=== PATIENT | female | born 1980 | race Caucasian/White ===

== ENCOUNTER 2018-01-31 20:53 | Emergency (ER) | payer MEDICAID, SELFPAY ==
[2018-01-31 20:55] VITALS: BP 161/121; PULSE 94; RESP 16; TEMP 36.7; O2SAT 98; BMI 43.2
--- NOTE | 2018-01-31 21:16 | US_ITS ---
STUDY: VENOUS DOPPLER ULTRASOUND - RIGHT LOWER EXTREMITY REASON FOR EXAM: Female, 37 years old. Right leg pain TECHNIQUE: Ultrasound evaluation of the deep vein system to include garcia-scale imaging and compression was performed. Garcia-scale imaging and Doppler sonographic evaluation, including duplex spectral analysis and qualitative color flow sonography, was performed. COMPARISON: None. FINDINGS: Common Femoral Vein: Normal compression, spontaneity and augmentation. Normal color Doppler. Common Femoral Vein/Greater Saphenous Junction: Normal compression, spontaneity and augmentation. Normal color Doppler. Deep Femoral Vein: Normal compression, spontaneity and augmentation. Normal color Doppler. Femoral Proximal: Normal compression, spontaneity and augmentation. Normal color Doppler. Femoral Middle: Normal compression, spontaneity and augmentation. Normal color Doppler. Femoral Distal: Normal compression, spontaneity and augmentation. Normal color Doppler. Popliteal Vein: Normal compression, spontaneity and augmentation. Normal color Doppler. Posterior Tibial Vein: Normal compression, spontaneity and augmentation. Normal color Doppler. Peroneal Vein: Normal compression, spontaneity and augmentation. Normal color Doppler. US/Venous Duplex Imag/Limited/Uni IMPRESSION: Normal venous Doppler ultrasound of the lower extremity. Electronically Signed: Ilia Biggs, at 22:29 EDT Tel , Service support ,
[2018-01-31] MEDS: proCHLORPERazine 10 MG/2 ML Vial IV (21:43)
[2018-01-31] MEDS: DiphenhydrAMINE 50 MG/ML Syringe IV (21:43)
[2018-01-31] MEDS: 0.9% Normal Saline 1,000 ML 999 ML IV (21:43)
[2018-01-31] MEDS: Ketorolac 30 MG/ML Syringe IV (21:43)
[2018-01-31 21:46] VITALS: BP 131/96; PULSE 79; RESP 16
--- NOTE | 2018-01-31 22:02 | ED.VISSUMM ---
- ER Visit Summary Date of Service: 01/31/18 Chief Complaint: Leg pain, migraine History of Present Illness: The patient is a 37 F presents to the emergency department with ecchymosis on the posterior right calf. Patient does not recall any injury. She states that she noticed a small amount of bruising on the calf. Throughout the day, the bruising is worsened. She has begun to have pain when she moves her foot. She does not take anticoagulants. She states because of the pain, she has had to change the way that she walks. She has begun to have a headache. She has a history of migraines and states that it feels like the start of one. She has been nauseated without vomiting. She has no history of hypercoagulopathy or prior blood clot. Physical Examination: Vital signs reviewed General: Well-nourished, well-developed Head: Normocephalic, atraumatic Eyes: Pupils equal and reactive, extraocular muscles intact Neck, supple, no lymphadenopathy Heart: Regular rate and rhythm Respiratory: No distress, clear bilaterally Abdomen: Soft, nontender, nondistended, no peritoneal signs Back: Nontender Extremities: Patient has a 5 cm area of ecchymosis on the medial posterior right calf. There is no cords. There is no cellulitis or streaking. Pulses are normal. Calf is soft. No compartment tenderness or fullness. Skin: Normal color no rash Neuro: Alert and oriented, no focal or lateralizing deficits Test Results: [] Emergency Department Course and Treatment: The patient does have a hematoma on her posterior calf. There is no compartment syndrome. Her pulses are normal. She is now beginning to get a migraine from her leg pain. Patient was treated with migraine abortive medications with resolution of her symptoms. I did obtain an ultrasound of the leg. There is no evidence of clot. I do feel that she may have torn a superficial vein now has a hematoma. She will continue anti-inflammatories. At this time, I do feel that the patient is safe for discharge. Treatment Plan: [] Disposition: Discharge Impression: 1. Hematoma right posterior calf 2. Migraine This note was generated with [employer] software. It may contain incorrect words, spelling, and punctuation that were not noted in review of the chart prior to signing ED Disposition - Plan for ED Patient: Chief Complaint: Dizziness Instructions: ED Hematoma, ED Headache Migraine Prescriptions: Ondansetron [Zofran Odt] 4 mg PO Q8H PRN PRN #10 tab PRN Reason: Nausea Naproxen [Naprosyn] 500 mg PO BID PRN #20 tab Referrals: [facility] Doctor,Out of [Primary Care Provider] -
[2018-01-31 22:33] VITALS: BP 146/91; PULSE 76; RESP 16
== END 2018-01-31 22:34 | disposition home or self-care (01) ==
LOC: ED 22:19
PROVIDERS: Emergency Provider Emergency Medicine
DX: S80.11XA Contusion of right lower leg, initial encounter (principal); G43.909 Migraine, unspecified, not intractable, without status migrainosus; X58.XXXA Exposure to other specified factors, initial encounter; Y93.9 Activity, unspecified; Y92.9 Unspecified place or not applicable; Y99.9 Unspecified external cause status
CPT/HCPCS: 93971; 96361; 96374; 96375; 99284; J7030

== ENCOUNTER 2018-02-02 11:57 | Emergency (ER) | payer MEDICAID, SELFPAY ==
[2018-02-02 11:58] VITALS: BP 162/116; PULSE 101; RESP 16; TEMP 36.9; O2SAT 98; BMI 43.1
--- NOTE | 2018-02-02 12:21 | CT_ITS ---
STUDY: CT ABDOMEN AND PELVIS WITHOUT CONTRAST REASON FOR EXAM: Female, 37 years old. Left flank pain. History of renal stones. RADIATION DOSAGE (If Supplied By Facility): CTDIvol = ( 24.47 ) mGy, DLP = ( 1375.78 ) mGycm TECHNIQUE: Transaxial images were obtained from the dome of the diaphragm to the symphysis pubis without oral contrast, and without intravenous contrast. Sagittal and coronal images were reconstructed. Individualized dose optimization techniques were used for this CT. COMPARISON: None. FINDINGS: The visualized lung bases are unremarkable. The visualized portions of the heart are within normal limits. Normal liver. There are surgical clips in the gallbladder fossa consistent with a prior cholecystectomy. There is mild splenomegaly. Normal pancreas. Normal bilateral adrenal glands. Normal right kidney. Normal left kidney. Normal visualized stomach. There are nonspecific fluid-filled small bowel loops. There is fecal retention. There is thickening of the thumb transverse and descending colon which could be due to underdistention however colitis cannot be excluded. The appendix is suboptimally visualized but appears to be unremarkable. There is mild diverticulosis of the sigmoid colon but there is no evidence of acute diverticulitis. Normal abdominal aorta. Normal inferior vena cava. Normal retroperitoneum. The bladder is not well-distended. There is a small left pelvic calcification likely due to phleboliths. There is a very small umbilical hernia containing fat. The patient is status post fusion of L4, L5 and S1 with bilateral pedicle screws. CT/Abdomen/Pelvis without Cont IMPRESSION: No evidence of urinary tract stones or hydronephrosis. Left pelvic calcification probably due to phleboliths. Nonspecific fluid-filled small bowel loops and mild thickening of the descending and transverse colon which could be due to underdistention. Enterocolitis cannot be excluded. Electronically Signed: Hubert Alexander MD at 14:26 EDT Tel , Service support ,
--- NOTE | 2018-02-02 12:23 | ED.DCSUM_ITS ---
- ER Visit Summary Date of Service: 02/02/18 Chief Complaint: Left flank pain History of Present Illness: The patient is a 37 F with a history of kidney stones presenting with fairly sudden onset left flank pain radiating anteriorly last night, similar to prior stone Physical Examination: She is not in distress. Neck is supple. Heart tones are regular and without murmur. She does have mild left flank percussion tenderness but overlying skin looks normal. No abdominal tenderness Test Results: Urinalysis does reveal leukocytes, nitrites, and bacteria. She does have UTI symptoms. CT abdomen/pelvis negative for ureteral stone but does reveal possible enterocolitis Emergency Department Course and Treatment: She has an obvious UTI but no evidence of stone. I will place her on antibiotics and culture her urine. Her pain is markedly improved on reexamination and she is not vomiting. She has had a recent diarrheal type illness so her CT findings are not surprising. She has no fever or evidence of an acute surgical abdomen. I will treat her with Cipro for possible gastrointestinal coverage as well. Follow up closely with her doctor and return here if worse. Treatment Plan: Antibiotics and Zofran, return if worse Disposition: Home stable condition Impression: Initial encounter acute upper urinary tract infection left flank pain This note was generated with [employer] dictation software. It may contain incorrect words, spelling, and punctuation that were not noted in review of the chart prior to signing ED Disposition - Plan for ED Patient: Chief Complaint: Flank Pain Instructions: ED Kidney Infec Female Prescriptions: Ondansetron [Zofran Odt] 4 mg PO Q8H PRN PRN #10 tablet PRN Reason: Nausea Fluconazole [Diflucan] 150 mg PO X1 #3 tablet Ciprofloxacin [Cipro] 500 mg PO BID 7 Days #14 tablet Referrals: [facility] Doctor,Out of [Primary Care Provider] -
[2018-02-02 12:46] LABS: Mucous, Urine 0 SEEN /hpf (<or=2+); Red Blood Cells-Urine 0 SEEN /hpf (0-5)
[2018-02-02 12:47] LABS: Color, Urine Yellow (Yellow); Glucose, Dipstick Normal (Normal); Ketone-Dipstick 5 mg/dl (Negative); Leukocyte Esterase-Dipstick 100 /ul (Negative); Nitrite-Dipstick Positive (Negative); Occult Blood-Urine 50 /ul (Negative); Protein-Dipstick 100 mg/dl (Negative); Urine Bilirubin Dipstick Negative (Negative); Urine Clarity Clear (Clear); Urine Urobilinogen Normal (Normal)
[2018-02-02 12:50] LABS: Internal QC Validated? YES +Cl - CLEAR BKGD
[2018-02-02 12:51] LABS: Pregnancy, Urine Negative Negative
[2018-02-02 12:54] LABS: Bacteria 1+ /hpf (None Seen); Squamous Epithelial Cells - UA 0-5 SEEN /hpf (5-10); White Blood Cells 25-50 SEEN /hpf (0-5)
[2018-02-02] MEDS: Ketorolac 30 MG/ML Syringe IV (13:17)
[2018-02-02] MEDS: Ondansetron 4 MG/2 ML Vial IV (13:17)
[2018-02-02] MEDS: 0.9% Normal Saline 1,000 ML 999 ML IV (13:17)
[2018-02-02 15:20] VITALS: RESP 14
[2018-02-02 15:25] VITALS: BP 154/97; PULSE 86; RESP 20; O2SAT 97
== END 2018-02-02 15:25 | disposition home or self-care (01) ==
PROVIDERS: Emergency Provider Emergency Medicine
DX: N39.0 Urinary tract infection, site not specified (principal); K52.9 Noninfective gastroenteritis and colitis, unspecified; R10.9 Unspecified abdominal pain; Z87.442 Personal history of urinary calculi; Z79.899 Other long term (current) drug therapy
CPT/HCPCS: 74176; 81001; 81025; 96361; 96374; 96375; 99283; J7030; A4216; J2405